=== PATIENT | male | born 1965 | race Two or more races ===

== ENCOUNTER 2018-10-31 22:21 | Emergency (ER) | payer SELFPAY ==
[~2018-10-31] VITALS: Ht 175.3 cm; Wt 97.5 kg
[2018-10-31] MEDS ORDERED: PROZAC10 MG ORAL (22:41)
[2018-10-31 23:15] VITALS: BP 110/71
[2018-10-31] MEDS ORDERED: cefTRIAXone 1 GM in NS 55 ML IVPB ONE (23:15)
[2018-10-31 23:56] LABS: ANION GAP 10 mmol/L (5-15); BASOPHILS % (AUTO) 0.6 % (0.0-2.0); BLOOD UREA NITROGEN 11 mg/dL (7-18); CALCIUM 8.7 MG/DL (8.5-10.1); CARBON DIOXIDE 26 MMOL/L (21-32); CHLORIDE 109 MMOL/L (98-107); CREATININE 0.9 MG/DL (0.55-1.30); EOSINOPHILS % (AUTO) 0.4 % (0.0-3.0); HEMATOCRIT 43.6 % (42.0-52.0); HEMOGLOBIN 15.3 G/DL (14.2-18.0); INR 0.9 (0.9-1.1); LYMPHOCYTES % (AUTO) 15.2 % (20.0-45.0); MEAN CORPUSCULAR VOLUME 92 FL (80-99); MONOCYTES % (AUTO) 7.2 % (1.0-10.0); NEUTROPHILS % (AUTO) 76.7 % (45.0-75.0); PLATELET COUNT 322 K/UL (150-450); POTASSIUM 3.9 MMOL/L (3.5-5.1); RED BLOOD COUNT 4.77 M/UL (4.70-6.10); RED CELL DISTRIBUTION WIDTH 11.8 % (11.6-14.8); SODIUM 144 MMOL/L (136-145)
[2018-11-01 00:01] LABS: ALANINE AMINOTRANSFERASE 36 U/L (12-78); ALBUMIN 3.9 G/DL (3.4-5.0); ALBUMIN/GLOBULIN RATIO 0.9 (1.0-2.7); ALKALINE PHOSPHATASE 81 U/L (46-116); ASPARTATE AMINO TRANSFERASE 17 U/L (15-37); BILIRUBIN,TOTAL 0.2 MG/DL (0.2-1.0)
[2018-11-01 00:45] VITALS: BP 110/72
--- NOTE | 2018-11-01 00:54 | Diagnostic Imaging Report ---
ADDENDUM - Added by Criselda Gutierrez MD on 11/01/2018 12:53 AM (-10:00) EXAM: CT Head Without Intravenous Contrast CLINICAL HISTORY: PAIN TECHNIQUE: Axial computed tomography images of the head/brain without intravenous contrast. CTDI is 0.15, 70.38 mGy and DLP is 1502 mGy-cm. One or more of the following dose reduction techniques were used: automated exposure control, adjustment of the mA and/or kV according to patient size, use of iterative reconstruction technique. COMPARISON: No relevant prior studies available. FINDINGS: Brain: Acute parenchymal hemorrhage in the left frontal lobe measures approximately 1.8 cm. A small amount of pneumocephalus and acute subarachnoid hemorrhage is present in the anterior left frontal lobe. Area of hypoattenuation and loss of gonzalez-white differentiation in the anterior left frontal lobe may represent edema. Infarction is not excluded. Ventricles: Unremarkable. No ventriculomegaly. Bones/joints: Acute displaced fracture of the superior wall of the left orbit. Soft tissues: Unremarkable. Sinuses: Unremarkable as visualized. No acute sinusitis. Mastoid air cells: Unremarkable. Orbits: Irregular contour of the proptotic left globe is concerning for rupture. IMPRESSION: Small parenchymal and subarachnoid hemorrhage in the left frontal lobe with surrounding edema. No significant mass effect. Fracture of the superior wall the left orbit. Left globe rupture. Critical Value Communications 11/01/18 00:57 Call Doctor Regarding Intracranial Hemorrhage, called Dr. Magaña on 11/01 00:57 (-08:00)
--- NOTE | 2018-11-01 00:56 | Diagnostic Imaging Report ---
EXAM: CT Orbits Without Intravenous Contrast CLINICAL HISTORY: PAIN TECHNIQUE: Axial computed tomography images of the orbits without intravenous contrast. CTDI is 0.15, 28.19 mGy and DLP is 346 mGy-cm. One or more of the following dose reduction techniques were used: automated exposure control, adjustment of the mA and/or kV according to patient size, use of iterative reconstruction technique. COMPARISON: No relevant prior studies available. FINDINGS: Orbits: Abnormal contour of the proptotic left globe is concerning for rupture. Sinuses: Unremarkable. No air-fluid levels. Bones/joints: Acute displaced fracture of the superior wall of the left orbit. Soft tissues: Unremarkable. Brain: Left frontal lobe hemorrhage is better characterized on accompanying CT of the head. Other findings: Left preseptal hematoma. IMPRESSION: Fracture of the superior wall of the left orbit. Left globe rupture.
--- NOTE | 2018-11-01 00:57 | Diagnostic Imaging Report ---
EXAM: XR Chest, 1 View CLINICAL HISTORY: PREOP TECHNIQUE: Frontal view of the chest. COMPARISON: No relevant prior studies available. FINDINGS: Lungs: Unremarkable. No consolidation. Pleural space: Unremarkable. No pneumothorax. Heart: Unremarkable. No cardiomegaly. Mediastinum: Unremarkable. Bones/joints: No acute osseous abnormality. IMPRESSION: No acute cardiopulmonary process.
[2018-11-01] MEDS ORDERED: levETIRAcetam 1,000mg/NS100ml 100 ML IVPB ONE (01:15)
[2018-11-01 01:30] VITALS: BP 106/69
[2018-11-01 02:24] VITALS: BP 106/69
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
== END 2018-11-01 02:00 | disposition short-term general hospital (02) ==
LOC: EMR 23:03
DX: S05.32XA Ocular laceration without prolapse or loss of intraocular tissue, left eye, initial encounter (principal); S06.5X9A Traumatic subdural hemorrhage with loss of consciousness of unspecified duration, initial encounter; I61.8 Other nontraumatic intracerebral hemorrhage; Z88.8 Allergy status to other drugs, medicaments and biological substances; Y04.2XXA Assault by strike against or bumped into by another person, initial encounter
CPT/HCPCS: 36415; 70450; 70480; 71045; 80053; 85025; 85610; 85730; 93005; 96361; 96365; 96367; 96375; 99291; 99292; J0696; J1953; J1956; J2405